=== PATIENT | male | born 1990 | race African-American/Black ===

== ENCOUNTER 2020-07-01 08:45 | Emergency (ER) | payer OTHER ==
[~2020-07-01] VITALS: Ht 167.6 cm; Wt 72.6 kg
[2020-07-01 09:21] LABS: URINE BILIRUBIN NEGATIVE (Negative); URINE BLOOD NEGATIVE (Negative); URINE CLARITY CLEAR; URINE COLOR YELLOW; URINE GLUCOSE-RANDOM NEGATIVE (Negative); URINE KETONES NEGATIVE (Negative); URINE LEUKOCYTES-REFLEX NEGATIVE (Negative); URINE NITRITE-REFLEX NEGATIVE (Negative); URINE PROTEIN NEGATIVE (Negative); URINE SPECIFIC GRAVITY >= 1.030 (1.005-1.030); URINE UROBILINOGEN 0.2 E.U./dl (0.2-1.0)
[2020-07-01] MEDS ORDERED: MEDROLDOSEPACK PO (09:31)
[2020-07-01] MEDS ORDERED: FLEXERIL PO (09:31)
[2020-07-01] MEDS ORDERED: HYDROCODON-ACE1 EAC7 PO (09:31)
[2020-07-01 09:40] VITALS: BP 124/61
== END 2020-07-01 09:48 | disposition home or self-care (01) ==
LOC: M.ERS 08:45
PROVIDERS: Family Medicine
DX: M54.5 Low back pain (principal); F17.210 Nicotine dependence, cigarettes, uncomplicated

== ENCOUNTER 2020-10-29 12:25 | Emergency (ER) | payer OTHER ==
[~2020-10-29] VITALS: Ht 170.2 cm; Wt 72.6 kg
[~2020-10-29 12:25] MED LIST: FLEXERIL PO; HYDROCODON-ACE1 EAC7 PO; MEDROLDOSEPACK PO
[2020-10-29] MEDS ORDERED: PREDNISONE 20 M20 MG PO (13:30)
[2020-10-29] MEDS ORDERED: FLEXERIL PO (13:30)
[2020-10-29 13:47] VITALS: BP 127/79
== END 2020-10-29 13:48 | disposition home or self-care (01) ==
LOC: M.ERS 12:25
DX: S16.1XXA Strain of muscle, fascia and tendon at neck level, initial encounter (principal); X50.1XXA Overexertion from prolonged static or awkward postures, initial encounter; Y93.89 Activity, other specified; Y92.89 Other specified places as the place of occurrence of the external cause; Y99.9 Unspecified external cause status